=== PATIENT | female | born 2000 | race Caucasian/White ===

== ENCOUNTER 2022-11-30 09:06 | Emergency (ER) | payer OTHER ==
--- OUTSIDE RECORDS SUMMARY | 2022-11-30 09:10 | XMS REPORT | Continuity of Care Document ---
:2000 Author Organization [facility] t Address [address] [place] [address] [place] [id number] Care Team Providers Name Role Phone Pcp, Patient Does Not Have A Primary Care Physician [id number] JUVENCIO CLARKE Attending Clinician Unavailable Juvencio Clarke MD Attending Clinician KAMALJIT HEIN Attending Clinician Unavailable KAMALJIT HEIN Attending Clinician Unavailable Ultrasound, Dennys-[place]fal[place] Attending Clinician Unavailable Loly Johnson MD Attending Clinician LOLY JOHNSON Attending Clinician Unavailable LOLY JOHNSON Attending Clinician Unavailable Lab, Dennys - Mark Attending Clinician Unavailable Doctor Unassigned, [place] Attending Clinician Unavailable JUVENCIO CLARKE Admitting Clinician Unavailable Juvencio Clarke MD Admitting Clinician Payers Payer Name Policy Type Policy Number Effective Date Expiration Date Dorie davis [place] [place] [id number] 2022 00:00:00 Problems Condition Condition Condition Status Onset Resolution Last Treating Co mments Source Name Details Category Date Date Treatment Clinician Date Normal Normal Disease Active Univers labor labor 1-30 ity of 00:00: [address] 37 weeks 37 weeks Disease Active Unive rs gestation gestation 1-30 ity of of of 00:00: [place] 00 [facility] donn Branch Vaginal Vaginal Disease Active Univers bleeding bleeding 1-30 ity of in in 00:: [place] , , 00 Me dical third third Branch trimester trimester History of History of Disease Active U nivers herpes herpes 1-30 [place] [address] [place] [address] Liveborn Liveborn Disease Active Unive rs infant, of , of 1-30 it y of haley haley 00:00: [place] , , 00 Me dical born in born in [facility] hospital by vaginal by vaginal delivery delivery Insufficie Insufficie Disease Active 2021-09 U nivers nt nt 0-28 ity of 00:00: [place] care in care in [address] [place] [address] third third [place] trimester trimester 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 ALLERGIE Class ity of [facility] Social History Social Habit Start Date Stop Date Quantity Comments Source ASSERTION 2022-02-15 [facility] 00:00:00 [facility] Alcohol intake 2022-10-21 2022-10-21 Lifetime [facility] 00:00:00 00:00:00 non-drinker [facility] (finding) [place] Exposure to 2022-07-22 2022-08-01 Not sure [facility] SARS-CoV-2 00:00:00 11:49:00 [facility] (event) Branch Tobacco use and 2022-07-18 2022-07-18 Smokeless tobacco Un iversity of exposure 00:00:00 00:00:00 non-user [facility] Sex Assigned At [birth year] Universit y of 00:00:00 00:00:00 [facility] Smoking Status Start Date Stop Date Source Tobacco smoking consumption [facility] Branch Never smoked tobacco [facility] Medications Ordered Filled Start Stop Current Ordering Indication Dosage Frequency Signature Comments Components Source Medication Medication Date Date Medication? Clinician (SIG) Name Name valacyclovi 2022- Take by Un bautista r HCl 10-21 mouth. ity of (VALACYCLOV 17:57: 00:00 [place] IR ORAL) 18 :00 [facility] rho(D) Yes 300ug 300 mcg, Univer s immune 10-21 Intramuscu ity of globulin 00:33: lar, ONCE, Bl[place] as (RHOGAM) 53 For 1 Medical syringe 300 dose, Branch mcg Conditiona l, Routine diphenhydrA 0 Yes 25mg 25 mg, Univ ers MINE 10-21 Oral, ity of (BENADRYL) 00:33: Q6HPRN, [place] tablet 25 48 Starting Medica l mg on Mon Branch 10/20/22 at 1833, Until Discontinu ed, Routine, Sleep, Itching ondansetron 0 Yes 4mg 4 mg, Slow Univers (ZOFRAN 10-21 IV Push, ity of (PF)) 00:33: Q8HPRN, [place] injection 4 48 Starting Medi donn mg on Mon Branch 10/20/22 at 1833, Until Discontinu ed, Routine, Nausea and Vomiting (N/V) simethicone 0 Yes 160mg 160 mg, Un bautista (GAS RELIEF 10-21 Oral, ity of (SIMETHICON 00:33: PC+HSPRN, [place] E)) 48 Starting Medical chewable on Thu [place] tablet 160 10/20/22 at mg 1832, Until Discontinu ed, Routine, Gas docusate 0 Yes 200mg 200 mg, Unive rs (COLACE) 10-21 Oral, ity of capsule 200 00:33: QDAILYPRN, [place] mg 48 Starting Medical on [facility] Branch 10/20/22 at 183, Until Discontinu ed, Routine, Constipati on magnesium 0 Yes 30mL 30 mL, Univer s hydroxide 10-21 Oral, ity of (MILK OF 00:33: QDAILYPRN, [place] as MAGNESIA) 48 Starting Medica l 400 mg/5 mL on [facility] suspension 10/20/22 at 30 mL 1832, Until Discontinu ed, Routine, Constipati on benzocaine- 0 Yes Topical, Un [place] menthol 10-21 PRN, ity of (DERMOPLAST 00:33: [place] 20-0.5 % 48 on [facility] Medical topical 10/20/22 at [place] spray 1832, Until Discontinu ed, Routine, Perineum discomfort witch Alonzo 0 Yes Topical, Un bautista (TUCKS) 50 10-21 Q4HPRN, ity of % topical 00:33: [place] pad 48 on [facility] Medical 1/30/23 at Branch 1833, Until Discontinu ed, Routine, rectal/hem orrhoidal pain HYDROcodone Yes 1{tbl} 1 tablet, Univers -acetaminop - Oral, ity of hen (NORCO 00:33: Q6HPRN, [place] 5) 5-325 mg 48 Starting Medi donn tablet 1 on Thu Branch tablet 10/20/22 at 1833, Until Discontinu ed, Routine, Pain (scale 7-10) ibuprofen 0 Yes 600mg 600 mg, Univ ers (IBU) 10-21 Oral, ity of tablet 600 00:33: Q6HPRN, [place] mg 48 Starting Medical on Mon Branch 10/20/22 at 1833, Until Discontinu ed, Routine, Pain (scale 4-6) acetaminoph Yes 650mg 650 mg, Un bautista en 10-21 Oral, ity of (TYLENOL) 00:33: Q6HPRN, [place] tablet 650 48 Starting Medic al mg on Thu Branch 10/20/22 at 1833, Until Discontinu ed, Routine, Pain (scale 1-3) 0 Yes [id number] 1{tbl} Take 1 Univers vitamin - 102 tablet by ity of w/FA tablet 00:00: [place] 00 the Medical morning. Branch docusate 0 Yes [id number] 200mg Take 2 Univers 100 mg - 102 capsules ity of capsule 00:00: by mouth [place] 00 once daily Medical as needed Branch for Constipati on. ferrous 0 Yes [id number] 325mg Take 1 Univers sulfate 325 10-21 102 tablet by ity of mg (65 mg 00:00: mouth [place] iron) 00 the Medical tablet morning Branch and 1 tablet in the evening. ibuprofen 0 Yes [id number] 600mg Take 1 Univers 600 mg - 102 tablet by ity of tablet 00:00: mouth [place] 00 every 6 Medical (six) Branch hours as needed (Pain). Take with food or milk. methylergon 2022- No .2mg 0.2 mg, Un bautista ovine 10-20-30 Intramuscu ity of (METHERGINE 22:30: 22:37 lar, ONCE [place] ) injection 00 :00 NOW, 1 Medica l 0.2 mg dose, On Branch Thu10/20/22 at 1630, Routine penicillin 2022- No 310 3 Million U nivers g pot in 10-20 Units, IV ity o f dextrose 3 21:45: 00:33 Piggyback, [place] million 00 :51 Q4H ABX, Medical unit/50 mL First dose Bra arh RTU iv on Thu piggyback 3 10/20/22 at Million 1545, Units Until Discontinu ed, Administer over 60 Minutes, 50 mL
Reas on for Anti-Infec tive: Empiric Therapy for Suspected Infection< br>Empiric Therapy Site: Pelvic
Duration of therapy: 72 hours valACYclovi 2022- No 500mg 500 mg, U nivers r (VALTREX) 10-20 Oral, Q12H i ty of tablet 500 20:15: 00:33 ABX, 2 [place] mg 00 :51 doses, Medical First dose Branch on Thu10/20/22 at 1415, Last dose on Thu10/21/22 at 0215, SANDEEP penicillin 2022- No 510 5 Million U nivers g potassium 10-20 Units, IV it y of 5 Million 17:45: 17:59 Piggyback, [place] Units in 00 :00 ONCE, 1 Medical NaCl 0.9% dose, On Branch (NS) 100 mL [facility] MINI-BAG 10/20/22 at 1145, Administer over 60 Minutes, 100 mL
Reas on for Anti-Infec tive: Empiric Therapy for Suspected Infection< br>Empiric Therapy Site: Pelvic
Duration of therapy: 72 hours D5W-LR IV 2022- No 1000mL at 1-125 U nivers infusion 10-20 mL/hr, IV ity o f 1,000 mL 14:54: 00:33 Infusion, Bl[place] as 51 :51 TITRATE, Medical Starting Branch on Thu10/20/22 at 0854, Until Thu10/20/22 at 1833, Routine valacyclovi 2021-09 Yes Take by Uni vers r HCl 2-05 mouth. ity of (VALACYCLOV 10:39: [place] IR ORAL) Medical Branch valacyclovi 2021-09 Yes Take by Uni vers r HCl 0-28 mouth. ity of (VALACYCLOV 14:12: [place] IR ORAL) 15 Medical Branch valacyclovi 2021-09 Yes Take by Uni vers r HCl 0-28 mouth. ity of (VALACYCLOV 14:12: [place] IR ORAL) 15 Medical Branch valacyclovi 2021-09 Yes Take by Uni vers r HCl 0-28 mouth. ity of (VALACYCLOV 14:12: [place] IR ORAL) 15 Medical Branch valacyclovi 2021-09 Yes Take by Uni vers r HCl 0-28 mouth. ity of (VALACYCLOV 14:12: [place] IR ORAL) 15 Medical Branch valacyclovi 2021-09 Yes Take by Uni vers r HCl 0-28 mouth. ity of (VALACYCLOV 14:12: [place] IR ORAL) 15 Medical Branch valacyclovi 2021-09 Yes Take by Uni vers r HCl 0-28 mouth. ity of (VALACYCLOV 14:12: [place] IR ORAL) 15 Medical Branch valacyclovi 2021-09 Yes Take by Uni vers r HCl 0-28 mouth. ity of (VALACYCLOV 14:12: [place] IR ORAL) 15 Medical Branch valacyclovi 2021-09 Yes Take by Uni vers r HCl 0-28 mouth. ity of (VALACYCLOV 14:12: [place] IR ORAL) 15 Medical Branch Vital Signs Vital Name Observation Time Observation Value Comments Source Systolic blood 2022-10-21 18:00:00 104 mm[Hg] Univer sity of pressure [facility] Diastolic blood 2022-10-21 18:00:00 61 mm[Hg] Unive rsity of pressure [facility] Heart rate 2022-10-21 18:00:00 65 /min General acute hospital Body temperature 2022-10-21 18:00:00 36.56 Ania [facility] Respiratory rate 2022-10-21 18:00:00 16 /min [facility] Oxygen saturation in 2022-10-21 18:00:00 99 /min [facility] Arterial blood by [facility] Pulse oximetry Branch Body height 2022-10-20 13:30:00 172.7 cm General acute hospital Body weight 2022-10-20 13:08:00 69.627 kg General acute hospital BMI 2022-10-20 13:08:00 23.34 kg/m2 Universi ty of [place] Medical [place] Heart rate 2022-08-25 16:38:00 78 /min Universi ty of [facility] Body temperature 2022-08-25 16:38:00 36.78 Ania Univ ersity of [facility] Branch Respiratory rate 2022-08-25 16:38:00 16 /min Univ ersity of [facility] Body height 2022-08-25 16:38:00 172.7 cm Universi ty of [place] Medical Branch Body weight 2022-08-25 16:38:00 65.499 kg Universi ty of [place] Medical Branch BMI 2022-08-25 16:38:00 21.96 kg/m2 Universi ty of [facility] Branch Oxygen saturation in 2022-08-25 16:38:00 100 /min [facility] Arterial blood by [facility] Pulse oximetry Branch Systolic blood 2022-08-25 16:38:00 106 mm[Hg] Univer sity of pressure [place] Medical [place] Diastolic blood 2022-08-25 16:38:00 68 mm[Hg] Unive rsity of pressure [facility] Systolic blood 2022-07-18 19:10:00 102 mm[Hg] Univer sity of pressure [place] Medical Branch Diastolic blood 2022-07-18 19:10:00 65 mm[Hg] Unive rsity of pressure [place] Medical Branch Heart rate 2022-07-18 19:10:00 82 /min Universi ty of [facility] Body temperature 2022-07-18 19:10:00 36.83 Ania Univ ersity of [facility] Branch Respiratory rate 2022-07-18 19:10:00 18 /min Univ ersity of [facility] Body height 2022-07-18 19:10:00 172.7 cm Universi ty of [place] Medical Branch Body weight 2022-07-18 19:10:00 61.689 kg Universi ty of [facility] Branch BMI 2022-07-18 19:10:00 20.68 kg/m2 Universi ty of [facility] Branch Procedures Procedure Date / Time Performed Performing Clinician Yahaira maldonado CBC WITH DIFF 2022-10-21 11:24:00 Juvencio Clarke [facility] o f [facility] Branch CBC WITH DIFF 2022-10-20 16:59:00 Juvencio Clarke [facility] o [facility] Medical Branch HEPATITIS B SURFACE 2022-10-20 16:59:00 Juvencio Clarke [facility] ANTIGEN Medical Branch ADC OR HARIKA ONLY - 2022-10-20 16:59:00 [facility]cio Clarke [facility] RPR Medical Branch HIV 1/2 AG-AB WITH 2022-10-20 16:59:00 Juvencio Clarke [facility] y of [place] REFLEX Medical Branch HB ABO GROUPING 2022-10-20 16:40:00 Juvencio Clarke [facility] o f [place] Medical Branch RHO (D) IMMUNE 2022-10-20 16:40:00 Jeff [facility] o [facility] GLOBULIN Medical Branch NOTICE OF PRIVACY 2022-10-20 12:57:09 Doctor Unassigned, No [facility] Name Medical [place] ASSIGNMENT OF BENEFITS 2022-10-20 12:55:42 Doctor Unassigned, No [facility] CONSENT/REFUSAL FOR 2022-10-20 12:55:27 Doctor Unassigned, No [facility] DIAGNOSIS AND Name Medical Branch TREATMENT POCT URINALYSIS W/O 2022-08-25 00:00:00 Kamaljit Hein [facility] SPECIFIC GRAVITY Medical Branch SECOND AND THIRD 2022-08-08 15:29:00 Kamaljit Hein [facility] TRIMESTER ULTRASOUND Medical [facility] CBC WITH DIFF 2022-08-01 18:10:00 Kamaljit Hein [facility] Medical [place] HEPATITIS B SURFACE 2022-08-01 18:10:00 Kamaljit Hein [facility] ANTIGEN Medical [place] HCV ANTIBODY 2022-08-01 18:10:00 Kamaljit Hein [facility] Medical [place] HIV 1/2 AG-AB WITH 2022-08-01 18:10:00 [facility]jit Hein [facility] REFLEX Medical [place] HB ABO GROUPING 2022-08-01 18:05:00 Vani [facility] Medical [place] ASSIGNMENT OF BENEFITS 2022-07-18 18:37:41 Doctor Unassigned, No [facility] POCT URINALYSIS W/O 2022-07-18 00:00:00 Kamaljit Hein [facility] SPECIFIC GRAVITY [facility] Branch Encounters Start End Encounter Admission Attending Care Care Encounter Source Date/Time Date/Time Type Type Clinicians Facility Department ID 2022-10-20 2022-10-21 Inpatient P JUVENCIO CLARKE [facility] ABDULAZIZ [id number] Univers 07:21:00 18:38:00 ity of [facility] 2022-10-20 2022-10-21 Hospital Juvencio Clarke [facility] 1.2.840.114 [id number] Univers 07:21:00 18:38:00 Encounter Cam JOSSELYN 350.1.13.10 ity of [place] 4.2.7.2.686 [facility] [id number] [facility] 083 Branch 2022-10-20 2022-10-20 Outpatient R KAMALJIT HEIN [facility] [place] [id number] Univers 14:15:00 14:15:00 KAMALJIT HEIN [facility] 2022-09-12 2022-09-12 Outpatient R KAMALJIT HEIN [facility] [place] [id number] Univers 10:30:00 10:30:00 KAMALJIT HEIN [facility] 2022-09-08 2022-09-08 Outpatient R KAMALJIT HEIN [facility] [place] [id number] Univers 10:00:00 10:00:00 KAMALJIT HEIN [facility]bel [facility] 2022-08-25 2022-08-25 Outpatient R KAMALJIT HEIN [facility] [place] [id number] Univers 10:30:00 10:58:54 KAMALJIT HEIN [facility] 2022-08-25 2022-08-25 Routine Vani [facility] 1.2.840.114 [id number] Univers 10:30:00 10:58:54 Kamaljit JACQUES 350.1.13.10 i ty of Visit WOMEN'S 4.2.7.2.686 [facility] [id number] [facility] CLINIC 134 Branch 2022-08-18 2022-08-18 Case Vani [facility] 1.2.840.114 [id number] Univers 00:00:00 00:00:00 Management Kamaljit JACQUES 350.1.13.10 ity of [place] 4[place]2.7.2.686 [place] [id number] [address] 2022-08-18 2022-08-18 Telephone DESHAWN Hein [place] 1.2.840.11 [id number] Univers 00:00:00 00:00:00 Kamaljit JACQUES 350.1.13.10 it y of [place] 4.2.7.2.686 [place] [id number] [address] 2022-08-08 2022-08-08 Undertaker Assistant Ultrasound, Joseph [facility] 1.2 .840.114 [id number] Univers 09:00:00 10:00:00 Visit Loly Johnson HEALTH SPECIALIST 350.1.13.10 ity of [facility] 4.2.7.2.686 [place] MATERNAL [id number] [facility] ical & CHILD [address] [place] [address] 2022-08-08 2022-08-08 Outpatient P LOLY JOHNSON [facility] [id number] Univers 09:00:00 09:00:00 LOLY JOHNSON ity [facility] 2022-08-08 2022-08-08 Case Vani [facility] 1.2.840.114 [id number] Univers 00:00:00 00:00:00 Management Kamaljit JACQUES 350.1.13.10 ity of [place] 4[place]2.7.2.686 [place] [id number] [address] 2022-08-04 2022-08-04 Outpatient R KAMALJIT HEIN [facility] B [id number] Univers 13:30:00 13:30:00 KAMALJIT HEIN [facility] 2022-08-01 2022-08-01 Undertaker Assistant Lab, Dennys - Db [facility] 1.2.840.1 [id number] Univers 12:15:00 13:03:41 [facility] 350.1.13.1 0 ity [facility] 4.2.7.2.686 [place] as SONIA?BLEA [id number] Pa lorenzo [address] MEDICAL OFFICE BUILDING 2022-08-01 2022-08-01 Outpatient R KAMALJIT HEIN [facility] B [id number] Univers 12:15:00 12:15:00 KAMALJIT HEIN [facility]bel [facility] 2022-07-28 2022-07-28 Outpatient R [facility] [id number] Univers 11:00:00 11:00:00 ity of [facility] 2022-07-18 2022-07-18 Initial Vani [place] 1.2.840.114 [id number] Univers 13:30:00 14:38:55 Kamaljit JACQUES 350.1.13.10 i ty of Visit WOMEN'S 4.2.7.2.686 [place] [facility] [id number] [place] [address] Branch 2022-07-18 2022-07-18 Outpatient R KAMALJIT HEIN [facility] B [id number] Univers 13:30:00 14:38:55 KAMALJIT HEIN [facility] 2022-07-18 2022-07-18 Orders Doctor SAGRARIO 1.2.840.114 [id number] Univers 00:00:00 00:00:00 Only Unassigned, JAZ 350.1.13.10 ity of [place] [facility] 4.2.7.2.686 Blas as [id number] [address] Results Test Description Test Time Test Comments Results Result Comments Source CBC with Differential 2022-10-21 11:41:03 Test Item Value Reference Range Interpretation Comme nts WBC (test code = 6690-2) 14.68 See_Comment H [A utomated message] The system which ge nerated this result transmit dexter reference range: 4.30 - 1 1.10 10*3/?L. The reference r maria c was not used to interpr et this result as normal/abnor mal. RBC (test code = 789-8) 3.52 See_Comment L [Au tomated message] The system which ge nerated this result transmit dexter reference range: 3.93 - 5 .25 10*6/?L. The reference r maria c was not used to interpr et this result as normal/abnor mal. HGB (test code = 718-7) 10.7 g/dL 11.6-15.0 L HCT (test code = 4544-3) 32.2 % 35.7-45.2 L MCV (test code = 787-2) 91.5 fL 80.6-95.5 MCH (test code = 785-6) 30.4 pg 25.9-32.8 MCHC (test code = 786-4) 33.2 g/dL 31.6-35.1 RDW-SD (test code = 15373-8) 40.5 fL 39.0-49.9 RDW-CV (test code = 788-0) 12.3 % 12.0-15.5 PLT (test code = 777-3) 197 See_Comment [Au tomated message] The system which [employer] nerated this result transmit dexter reference range: 166 - 35 8 10*3/?L. The reference range was not used to interpret th is result as normal/abnormal . MPV (test code = 98116-3) 10.3 fL 9.5-12.9 NRBC/100 WBC (test code = 0.0 See_Comment [ Automated message] The [id number]) system which [employer] nerated this result transmit dexter reference range: 0.0 - 10 .0 /100 WBCs. The reference r maria c was not used to interpr et this result as normal/abnor mal. NRBC x10^3 (test code = See_Comment [Au tomated message] The [id number]) system which [employer] nerated this result transmit dexter reference range: 10*3/?L. The reference range was not u sed to interpret this result as normal/abnormal . GRAN MAT (NEUT) % (test code 74.0 % = 770-8) IMM GRAN % (test code = 1.40 % [id number]) LYMPH % (test code = 736-9) 17.8 % MONO % (test code = 5905-5) 6.0 % EOS % (test code = 713-8) 0.3 % BASO % (test code = 706-2) 0.5 % GRAN MAT x10^3(ANC) (test 10.86 10*3/uL 1.88-7.09 H code = 9168971125) IMM GRAN x10^3 (test code = 0.20 10*3/uL 0.00-0.06 H [id number]) LYMPH x10^3 (test code = 2.62 10*3/uL 1.32-3.29 731-0) MONO x10^3 (test code = 0.88 10*3/uL 0.33-0.92 742-7) EOS x10^3 (test code = 0.05 10*3/uL 0.03-0.39 711-2) BASO x10^3 (test code = 0.07 10*3/uL 0.01-0.07 704-7) Lab Interpretation (test Abnormal code = 44426-3) [facility] I[facility]E [id number] 04:58:25 Test Item Value Reference Range Interpretation Comments RHIG CANDIDATE? No- see comment Patient i s not a (test code = candidate for R [facility]- 5055) Patient is Rh Positive.Perfor med at [facility] Laboratory Services - [facility] Blood [address] [place] [address]Toll Free: [phone] A No. [id number] [facility] and Screen - ONCE [id number] 18:22:18 Test Item Value Reference Range Interpretation Comments ABO & RH (test code O Positive Performe d at [facility] = 20) Laboratory Serv [facility] Blood [facility] [place], [place] [address]Toll Free: [phone] A No. [id number] IAT (test code = Negative Performed a t [facility] 1185) Laboratory Serv [facility] Blood [address] [place], [place] [address]Toll Free: [phone] A No. [id number] [facility] W/O SPECIFIC [id number] 16:42:00 Test Item Value Reference Range Interpretation Comments POCT PH U (test code = 3254) n/a 5-8 POCT U LEUK EST (test code = n/a Negative - Negative 3953) POCT U NIT (test code = 3262) n/a Negative - Negative POCT U PROT (test code = 3259) negative Negative - Negative POCT U GLU (test code = 3256) negative Negative - Negative POCT U KETONE (test code = 3258) n/a Negative - Negative POCT U BLD (test code = 3257) n/a Negative - Negative [facility] [id number] 00:07:07 Test Item Value Reference Range Interpretation Comments HCV Ab (test code = 03830-8) Negative HCV Semi-Quantitative (test code = 42515-5) [facility] SURFACE [id number] 23:49:25 Test Item Value Reference Range Interpretation Comments HBsAg Semi-Quantitative (test code = Negative Negative 5195-3) [facility] AG-AB WITH [id number] 22:48:23 Test Item Value Reference Range Interpretation Comments HIV Negative Negative Semi-quantitative (test code = 24239-6) TARI (test code = Non-reactive for HIV-1 TARI) antigen and HIV-1/HIV-2 antibodies. ?No laboratory evidence of HIV infection. ?Repeat in 2-4 weeks if acute HIV infection is suspected. [facility] WITH [id number] 21:53:36 Test Item Value Reference Range Interpretation Comments WBC (test code = See_Comment [Automated 2844-2) message] The sy stem which generated this result transmitted reference range : 4.30 - 11.10 10*3/?L. The reference range was not used to interpret this result as normal/abnormal . RBC (test code = See_Comment [Automated 993-8) message] The sy stem which generated this result transmitted reference range : 3.93 - 5.25 10*6/?L. The reference range was not used to interpret this result as normal/abnormal . HGB (test code = 12.9 g/dL 11.6-15.0 718-7) HCT (test code = 37.8 % 35.7-45.2 4544-3) MCV (test code = 93.1 fL 80.6-95.5 787-2) MCH (test code = 31.8 pg 25.9-32.8 785-6) MCHC (test code = 34.1 g/dL 31.6-35.1 786-4) RDW-SD (test code = 43.5 fL 39.0-49.9 46375-3) RDW-CV (test code = 12.7 % 12.0-15.5 788-0) PLT (test code = See_Comment [Automated 777-3) message] The sy stem which generated this result transmitted reference range : 166 - 358 10*3/ ?L. The reference r maria c was not used to interpret this result as normal/abnormal . MPV (test code = 10.5 fL 9.5-12.9 67889-9) NRBC/100 WBC (test See_Comment [Automat ed code = 9941588244) message] The system which generated this result transmitted reference range : 0.0 - 10.0 /100 WBCs. The refer ence range was not u sed to interpret th is result as normal/abnormal . NRBC x10^3 (test code See_Comment [Auto mated = [id number]) message] The s ystem which generated this result transmitted reference range : 10*3/?L. The reference range was not used to interpret this result as normal/abnormal . GRAN MAT (NEUT) % 74.7 % (test code = 770-8) IMM GRAN % (test code 1.00 % = [id number]) LYMPH % (test code = 18.7 % 736-9) MONO % (test code = 5.0 % 5905-5) EOS % (test code = 0.3 % 713-8) BASO % (test code = 0.3 % 706-2) GRAN MAT x10^3(ANC) 7.22 10*3/uL 1.88-7.09 H (test code = 7832290579) IMM GRAN x10^3 (test 0.10 10*3/uL 0.00-0.06 H code = 4395114208) LYMPH x10^3 (test code 1.81 10*3/uL 1.32-3.29 = 731-0) MONO x10^3 (test code 0.48 10*3/uL 0.33-0.92 = 742-7) EOS x10^3 (test code = 0.03 10*3/uL 0.03-0.39 711-2) BASO x10^3 (test code 0.03 10*3/uL 0.01-0.07 = 704-7) Lab Interpretation Abnormal (test code = 71084-5) [facility] [id number] 20:35:02 Test Item Value Reference Range Interpretation Comments ABO & RH (test code O Positive Performe d at [facility] = 20) Laboratory Serv [facility] [place], [place] [address]Toll Free: [phone] A No. [id number] IAT (test code = Negative Performed a t [facility] 1185) Laboratory Serv [facility] [place], [place] [address]Toll Free: [phone] A No. [id number] [facility] W/O SPECIFIC [id number] 19:38:00 Test Item Value Reference Range Interpretation Comments POCT PH U (test code = 3254) N/A 5-8 POCT U LEUK EST (test code = N/A Negative - Negative 3263) POCT U NIT (test code = 3262) N/A Negative - Negative POCT U PROT (test code = 3259) Negative Negative - Negative POCT U GLU (test code = 3256) Negative Negative - Negative POCT U KETONE (test code = 3258) N/A Negative - Negative POCT U BLD (test code = 3257) N/A Negative - Negative [facility]
[2022-11-30 10:21] LABS: SARS-COV-2 RT PCR NEGATIVE (NEGATIVE)
[2022-11-30 10:46] LABS: Urine Blood Negative (Negative); Urine Glucose Negative (Negative); Urine Protein Negative (Negative)
--- NOTE | 2022-11-30 11:14 | RAD REPORT ---
EXAM DESCRIPTION: CT - Head Brain Wo Cont - 11/30/2022 11:07 am CLINICAL HISTORY: HEADACHE COMPARISON: No comparisons TECHNIQUE: All CT scans are performed using dose optimization technique as appropriate and may inclu de automated exposure control or mA/KV adjustment according to patient size. FINDINGS: No intracranial hemorrhage, hydrocephalus or extra-axial fluid collection.No areas of brai n edema or evidence of midline shift. The paranasal sinuses and mastoids are clear. The calvarium is intact. IMPRESSION: No acute intracranial abnormality.
[2022-11-30] MEDS ORDERED: NA CHLORIDE 0.9% 1,000 ML ONE (11:48)
[2022-11-30] MEDS ORDERED: METOCLOPRAMIDE 10 MG/2mL INJ ONE (11:48)
[2022-11-30 12:10] LABS: Absolute Lymphocytes (CBC) 1.6 K/uL (0.7-4.9); Hematocrit 38.4 % (36.0-45.0); Lymphocytes % 20.9 % (15.3-44.8); MPV 7.3 fL (7.6-11.3); RBC Red Blood Cell Count 4.27 M/uL (3.86-4.86)
[2022-11-30 12:26] LABS: Potassium 3.2 mmol/L (3.5-5.1)
[2022-11-30 13:29] VITALS: TEMP 98.3
[2022-11-30 13:35] VITALS: BP 111/74; O2SAT 100
--- NOTE | 2022-12-12 16:56 | EDPHYS ---
Physician Documentation [facility] Name: Shona Lorenz Age: 22 yrs Sex: Female : 2000 Arrival Date: 11/30/2022 Time: 09:09 Bed 8 Private MD: ED Physician Juan Milton HPI: 11/30 09:21 This 22 yrs old Female presents to ER via Ambulatory with complaints of Toothache. [facility] 09:21 The patient presents with pain. This is a 22 year old female that presents to the ED [facility] with complaints of headache, dental pain, body aches, neck pain beginning over a month ago. . 09:21 Onset: The symptoms/episode began/occurred gradually. 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 - Social history:: Smoking status: Patient denies any tobacco usage or history of. ROS: 09:36 Constitutional: Positive for body aches, fever. [facility] 09:36 Respiratory: Positive for cough. 09:36 Neuro: Positive for headache. 09:36 All other systems are negative. Exam: 09:36 Constitutional: This is a well developed, well nourished patient who is awake, alert, jmm and in no acute distress. Head/Face: atraumatic. Eyes: EOMI, no conjunctival erythema appreciated ENT: Moist Mucus Membranes Neck: Trachea midline, Supple Chest/axilla: Normal chest wall appearance and motion. Cardiovascular: Regular rate and rhythm. No edema appreciated Respiratory: Normal respirations, no respiratory distress appreciated Abdomen/GI: Non distended Back: Normal ROM Skin: General appearance color normal MS/ Extremity: Moves all extremities, no obvious deformities appreciated, no edema noted to the lower extremities Neuro: Awake and alert Psych: Behavior is normal, Mood is normal, Patient is cooperative and pleasant Vital Signs: 09:21 BP 139 / 67; Pulse 101; Resp 18; Temp 98.3(O); Pulse Ox 97% on R/A; Pain 8/10; nj1 09:29 BP 139 / 67; Pulse 94; Resp 18; Pulse Ox 98% on R/A; ld1 09:32 Temp 98.3(O); ld1 10:05 BP 116 / 83; Pulse 94; Resp 18; Pulse Ox 99% ; nj1 11:57 BP 122 / 70; Pulse 83; Resp 18; Pulse Ox 99% on R/A; ld1 13:10 BP 111 / 74; Pulse 79; Resp 16; Pulse Ox 100% on R/A; nj1 09:21 Pain Scale: Adult nj1 MDM: 09:21 Patient medically screened. [facility] 19:41 Differential diagnosis: Viral syndrome, sepsis, UTI, pharyngitis, dental abscess. Data [facility] reviewed: vital signs, nurses notes, lab test result(s), radiologic studies. I considered the following discharge prescriptions or medication management in the emergency department Medications were administered in the Emergency Department. See MAR. Counseling: I had a detailed discussion with the patient and/or guardian regarding: the historical points, exam findings, and any diagnostic results supporting the discharge/admit diagnosis, lab results, radiology results, the need for outpatient follow up, to return to the emergency department if symptoms worsen or persist or if there are any questions or concerns that arise at home. ED course: Patient is alert nontoxic in appearance in the ED. Labs positive for mono. Patient vies follow-up PCP and otherwise given strict return precautions. Patient given follow-up information for primary care. Patient understood agrees to plan of care. 11/30 09:26 Order name: COVID-19/FLU A+B; Complete Time: 10:40 [facility] 11/30 09:26 Order name: Strep; Complete Time: 10:01 [facility] 11/30 10:01 Order name: Throat Culture [facility] 11/30 10:47 Order name: Urine Dipstick-Ancillary; Complete Time: 10:50 [facility] 11/30 10:49 Order name: CBC with Diff; Complete Time: 12:17 [facility] 11/30 10:49 Order name: BMP; Complete Time: 12:28 [facility] 11/30 10:49 Order name: Lactate w/ 2H reflex if indic.; Complete Time: 13:00 [facility] 11/30 10:52 Order name: Blood Culture Adult (2) [facility] 11/30 10:58 Order name: Morton Screen Profile; Complete Time: 12:38 [facility] 11/30 11:42 Order name: Urine --Ancillary (enter results); Complete Time: 11:47 aa5 11/30 10:49 Order name: CT Head Brain wo Cont; Complete Time: 11:14 [facility] 11/30 09:26 Order name: Urine Dipstick-Ancillary (obtain specimen); Complete Time: 11:41 [facility] 11/30 09:31 Order name: Misc. Order: temp?; Complete Time: 09:32 [facility] 11/30 10:49 Order name: Saline Lock; Complete Time: 11:56 [facility] 11/30 10:55 Order name: Urine Test (obtain specimen); Complete Time: 11:41 [facility] Administered Medications: 11:57 Drug: NS 0.9% IV 1000 ml Route: IV; Rate: 1 bolus; Site: left antecubital; ld1 13:10 Follow up: Response: No adverse reaction; IV Status: Completed infusion; IV Intake: nj1 1000ml 11:57 Drug: metoCLOPramide IVP 10 mg Route: IVP; Site: left antecubital; ld1 13:18 Follow up: Response: No adverse reaction nj1 Disposition: 16:52 Co-signature as Attending Physician, Juan Milton MD I reviewed the patient's care rt provided by the Advanced Practice Provider and agree with the diagnosis and treatment plan. Disposition Summary: 11/30/22 13:04 Discharge Ordered Location: Home [facility] Condition: Stable jmm Diagnosis - Infectious mononucleosis, unspecified jmm Followup: jm - With: Private Physician - When: 2 - 3 days - Reason: Recheck today's complaints, Continuance of care, Re-evaluation by your physician Discharge Instructions: - Discharge Summary Sheet [facility] - Infectious Mononucleosis [facility] Forms: - Medication Reconciliation Form [facility] - Thank You Letter jmm - Antibiotic Education jmm - Prescription Opioid Use jm Signatures: Dispatcher [employer] Matt Delatorre PA PA jmm Dibbern, Lauren, RN RN ld1 Juan Milton MD MD rt Sharron Yee RN RN nj1
--- NOTE | 2022-12-12 16:56 | ER ---
Nurse's Notes [facility] Name: Shona Lorenz Age: 22 yrs Sex: Female : 2000 Arrival Date: 11/30/2022 Time: 09:09 Bed 8 Private MD: Diagnosis: Infectious mononucleosis, unspecified Presentation: 11/30 09:21 Chief complaint: Patient states: she has had issues with her teeth for about a month, nj1 but yesterday the pain along with other symptoms "body aches, fever" made her concerned about having an infection. Denies cough. Coronavirus screen: Vaccine status:. Coronavirus screen: Vaccine status: Patient reports being unvaccinated. Ebola Screen: No symptoms or risks identified at this time. Initial Sepsis Screen: Does the patient meet any 2 criteria? No. Patient's initial sepsis screen is negative. Does the patient have a suspected source of infection? Yes: Dysuria/Frequency/Urgency/UTI. Risk Assessment: Do you want to hurt yourself or someone else? Patient reports no desire to harm self or others. Onset of symptoms was November 2022. 09:21 Method Of Arrival: Ambulatory [facility] 09:21 Acuity: ANA 3 [facility] Triage Assessment: 09:36 General: Appears in no apparent distress. comfortable, Behavior is calm, cooperative, [facility] appropriate for age. Pain: Complains of pain in Dental Pain currently is 8 out of 10 on a pain scale. EENT: Reports Dental pain, sore throat . 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 - Social history:: Smoking status: Patient denies any tobacco usage or history of. Screenin:20 [facility] ED Fall Risk Assessment (Adult) History of falling in the last 3 months, [facility] including since admission No falls in past 3 months (0 pts) Confusion or Disorientation No (0 pts) Intoxicated or Sedated No (0 pts) Impaired Gait No (0 pts) Mobility Assist Device Used No (0 pt) Altered Elimination No (0 pt) Score/Fall Risk Level 0 - 2 = Low Risk. Abuse screen: Denies threats or abuse. Denies injuries from another. Nutritional screening: No deficits noted. Tuberculosis screening: No symptoms or risk factors identified. Assessment: 10:05 Reassessment: Patient appears in no apparent distress at this time. No changes from [facility] previously documented assessment. Patient and/or family updated on plan of care and expected duration. Pain level reassessed. Patient is alert, oriented x 3, equal unlabored respirations, skin warm/dry/pink. 11:00 Reassessment: Patient appears in no apparent distress at this time. Patient and/or nj1 family updated on plan of care and expected duration. Pain level reassessed. Patient is alert, oriented x 3, equal unlabored respirations, skin warm/dry/pink. 12:15 Reassessment: Patient appears in no apparent distress at this time. Patient and/or nj1 family updated on plan of care and expected duration. Pain level reassessed. Patient is alert, oriented x 3, equal unlabored respirations, skin warm/dry/pink. Patient states symptoms have improved. 13:10 Reassessment: Patient appears in no apparent distress at this time. No changes from [facility] previously documented assessment. Patient and/or family updated on plan of care and expected duration. Pain level reassessed. Patient is alert, oriented x 3, equal unlabored respirations, skin warm/dry/pink. Patient states feeling better. Vital Signs: 09:21 BP 139 / 67; Pulse 101; Resp 18; Temp 98.3(O); Pulse Ox 97% on R/A; Pain 8/10; nj1 09:29 BP 139 / 67; Pulse 94; Resp 18; Pulse Ox 98% on R/A; ld1 09:32 Temp 98.3(O); ld1 10:05 BP 116 / 83; Pulse 94; Resp 18; Pulse Ox 99% ; nj1 11:57 BP 122 / 70; Pulse 83; Resp 18; Pulse Ox 99% on R/A; ld1 13:10 BP 111 / 74; Pulse 79; Resp 16; Pulse Ox 100% on R/A; nj1 09:21 Pain Scale: Adult [facility] ED Course: 09:09 Patient arrived in ED. mr 09:16 Matt Kwok PA is PHCP. pinky 09:16 Juan Milton MD is Attending Physician. jmm 09:21 Arm band placed on Patient placed. nj1 09:21 Bed in low position. Call light in reach. nj1 09:28 Sharron Yee, RN is Primary Nurse. nj1 09:32 Strep Sent. ld1 09:32 COVID-19/FLU A+B Sent. ld1 09:36 Triage completed. nj1 11:09 CT Head Brain wo Cont In Process Unspecified. EDMS 11:45 Inserted saline lock: 20 gauge in left antecubital area, using aseptic technique. Blood ko1 collected. 11:57 Blood Culture Adult (2) Sent. ko1 13:10 IV discontinued, intact, bleeding controlled, No redness/swelling at site. nj1 13:17 No provider procedures requiring assistance completed. nj1 Administered Medications: 11:57 Drug: NS 0.9% IV 1000 ml Route: IV; Rate: 1 bolus; Site: left antecubital; ld1 13:10 Follow up: Response: No adverse reaction; IV Status: Completed infusion; IV Intake: nj1 1000ml 11:57 Drug: metoCLOPramide IVP 10 mg Route: IVP; Site: left antecubital; ld1 13:18 Follow up: Response: No adverse reaction nj1 Medication: 13:17 VIS not applicable for this client. nj1 Intake: 13:10 IV: 1000ml; Total: 1000ml. nj1 Outcome: 13:04 Discharge ordered by . [facility] 13:10 Discharged to home ambulatory. nj1 13:10 Condition: good 13:10 Discharge instructions given to patient, Instructed on discharge instructions, follow up and referral plans. Demonstrated understanding of instructions, follow-up care. 13:25 Patient left the ED. aa5 Signatures: Dispatcher [employer] EDMS Matt Kwok PA PA jmm NielsenJyoti mr DeeCora, RN RN aa5 Justine Saavedra, RN RN ld1 Florinda Leach, KIMMY RN ko1 Sharron Yee, RN RN nj1
== END 2022-11-30 13:25 | disposition home or self-care (01) ==
LOC: ER 09:06
DX: B27.90 Infectious mononucleosis, unspecified without complication (principal); Z20.822 Contact with and (suspected) exposure to COVID-19
CPT/HCPCS: 96361; 87040 ×2; 87070; 85025; 80048; 36415; 86308; 87205; 81025; 87081; 83605; 81003; 0240U; 70450; 96374; 99284; J2765; J7030